=== PATIENT | female | born 1965 | race African-American/Black ===

== ENCOUNTER 2018-09-01 13:04 | Emergency (ER) | payer OTHER ==
[~2018-09-01] VITALS: Ht 170.2 cm; Wt 74.8 kg
[2018-09-01 13:22] LABS: URINE BILIRUBIN NEGATIVE (Negative); URINE BLOOD TRACE (Negative); URINE CLARITY SL CLOUDY; URINE COLOR YELLOW; URINE GLUCOSE-RANDOM* NEGATIVE (Negative); URINE KETONES NEGATIVE (Negative); URINE NITRITE-REFLEX NEGATIVE (Negative); URINE PROTEIN (DIPSTICK) NEGATIVE (Negative); URINE UROBILINOGEN 0.2 E.U./dl (0.2-1.0)
[2018-09-01] MEDS ORDERED: HYDROCHLOROTH12.5 M1 PO (13:25)
[2018-09-01 13:28] LABS: URINE LEUKOCYTES-REFLEX 3+ (Negative)
[2018-09-01 13:35] LABS: CASTS None Seen /LPF (None Seen); SQUAMOUS 0-3 Few /LPF (0-3)
[2018-09-01 13:36] LABS: BACTERIA-REFLEX 1-9 Few /HPF (None Seen); CRYSTALS None Seen /LPF (None Seen); URINE RBC 0-2 Rare /HPF (0-2)
[2018-09-01 13:57] LABS: HEMATOCRIT 42.3 % (37.0-47.0); HEMOGLOBIN 14.3 gm/dL (12.0-15.0); MCHC 33.8 g/dL (28.0-37.0); MCV 91.6 fL (80.0-100.0); PLATELET COUNT 327 thou/uL (150-400); RBC 4.62 mil/uL (4.20-5.00); RDW 14.1 % (10.5-14.5); WBC 9.4 thou/uL (4.0-11.0)
[2018-09-01 14:09] LABS: CALCIUM 9.4 mg/dL (8.5-10.1); CREATININE 0.6 mg/dL (0.6-1.0); POTASSIUM 3.1 mmol/L (3.5-5.1)
[2018-09-01 14:14] LABS: ALBUMIN 3.3 g/dL (3.4-5.0); TOTAL BILIRUBIN 0.6 mg/dL (<0.1-1.0); TOTAL PROTEIN 8.4 g/dL (6.4-8.2)
[2018-09-01 14:28] LABS: ANISOCYTOSIS 1+
[2018-09-01 14:29] LABS: POLYCHROMASIA OCCASIONAL
[2018-09-01] MEDS ORDERED: POTASSIUM20 PO (14:38)
[2018-09-01] MEDS ORDERED: KEFLEX500 M1 PO (14:38)
[2018-09-01 14:49] VITALS: BP 135/73
== END 2018-09-01 14:49 | disposition home or self-care (01) ==
LOC: ER 13:04
PROVIDERS: Emergency Medicine; Nurse Practitioner
DX: N39.0 Urinary tract infection, site not specified (principal)